=== PATIENT | female | born 1955 | race Caucasian/White ===

== ENCOUNTER → 2017-12-12 | Outpatient (CLI) | payer BC ==
--- NOTE | 2017-12-13 09:53 | MM ---
Reason for exam: screening (asymptomatic). Last mammogram was performed 1 year and 10 months ago. History: Patient is postmenopausal. Family history of breast cancer in aunt. Physical Findings: A clinical breast exam by your physician is recommended on an annual basis and results should be correlated with mammographic findings. MG Screening Mammo w CAD Bilateral CC and MLO view(s) were taken. Prior study comparison: January 30, 2016, left breast MG 3d work up w/cad LT. January 16, 2016, bilateral MG screening mammo w CAD. The breast tissue is almost entirely fat. No suspicious abnormality. No significant changes when compared with prior studies. ASSESSMENT: Negative, BI-RAD 1 RECOMMENDATION: Routine screening mammogram of both breasts in 1 year.
== END | disposition home or self-care (01) ==
LOC: RADMAMWWP 11:40
PROVIDERS: ATTEND Family Medicine
DX: Z12.31 Encounter for screening mammogram for malignant neoplasm of breast (principal)
CPT/HCPCS: 77067

== ENCOUNTER 2018-03-18 07:34 | Day surgery (SDC) | payer BC ==
[2018-03-14 11:18] VITALS: BMI 35.9
[~2018-03-18 07:34] MED LIST: LACTATED RINGERS 1,000 ML IV SCH; LIDOCAINE 1% 20 ML VIAL (10MG/ML) FOR IV START INTRADERMA PRN; MIDAZOLAM 2 MG/2 ML VIAL IV PRN
[2018-03-18 08:37] VITALS: RESP 16; TEMP 97.8
[2018-03-18] MEDS ORDERED: GLUCAGON 1 MG/ML VIAL ONE (08:55)
[2018-03-18] MEDS ORDERED: LIDOCAINE 1% INJ 10MG/ML (20 ML MDV) ONE (08:55)
[2018-03-18] MEDS ORDERED: PROPOFOL 10 MG/ML 20 ML VIAL IV ONE (08:55)
--- NOTE | 2018-03-18 09:19 | P.PCN ---
Date of Procedure: 03/18/18 Preoperative Diagnosis: Irritable bowel syndrome, strong family history of inflammatory bowel disease Postoperative Diagnosis: Diverticuli, internal hemorrhoids Procedure(s) Performed: Colonoscopy Anesthesia: MAC Surgeon: Serina Cheney Estimated Blood Loss (ml): 0 IV fluids (ml): 300 Pathology: none sent Condition: stable Disposition: PACU Indications for Procedure: Irritable bowel syndrome, family history of Crohn's disease Operative Findings: Diverticuli, internal hemorrhoids Description of Procedure: Patient was taken to the endoscopy suite and placed in the left lateral decubitus position. Sedation was given. Rectal examination patient was noted to have good sphincter tone no masses. Colonoscope was passed through the anus into the rectum. Was passed through the sigmoid colon up to splenic flexure transverse colon hepatic flexure right colon down to the area of the cecum. Circumferential observation mucosa did not reveal any lesions of concern in the cecum or right colon. No lesions of concern in the transverse colon. No lesions of concern in the left colon. In the sigmoid colon were scattered diverticuli. Scope was brought down to the rectum where it was retroflexed internal hemorrhoids identified. Impression/plan internal hemorrhoids 2. Diverticuli Plan: 1. Diverticular diet 2. Conservative management of hemorrhoids 3. Repeat scope 7-10 years unless patient develops symptoms with recommend yearly rectal exam with Hemoccult testing
--- NOTE | 2018-03-18 09:20 | P.DS ---
Providers Attending physician: Serina Cheney Primary care physician: Josef Alvarado Plan - Discharge Summary New Discharge Prescriptions: No Action Cholecalciferol [Vitamin D3] 1,000 unit PO DAILY Levothyroxine Sodium [Synthroid] 88 mcg PO DAILY Dicyclomine [Bentyl] 10 mg PO QID SUMAtriptan SUCCINATE [Imitrex] 100 mg PO DAILY PRN PRN Reason: Migraine Headache Propranolol HCl [Propranolol HCl ER] 120 mg PO DAILY Wallaceton-3 Fatty Acids [Wallaceton-3] 1,000 mg PO DAILY Meloxicam [Meloxicam] 15 mg PO DAILY Hydrochlorothiazide [Hydrochlorothiazide] 25 mg PO DAILY Esomeprazole Magnesium [Esomeprazole Magnesium] 40 mg PO DAILY Biotin 5 mg PO DAILY Amitriptyline HCl [Amitriptyline HCl] 25 mg PO HS Discharge Medication List Amitriptyline HCl [Amitriptyline HCl] 25 mg PO HS 03/14/18 [History] Biotin 5 mg PO DAILY 03/14/18 [History] Cholecalciferol [Vitamin D3] 1,000 unit PO DAILY 03/14/18 [History] Dicyclomine [Bentyl] 10 mg PO QID 03/14/18 [History] Esomeprazole Magnesium [Esomeprazole Magnesium] 40 mg PO DAILY 03/14/18 [History ] Hydrochlorothiazide [Hydrochlorothiazide] 25 mg PO DAILY 03/14/18 [History] Levothyroxine Sodium [Synthroid] 88 mcg PO DAILY 03/14/18 [History] Meloxicam [Meloxicam] 15 mg PO DAILY 03/14/18 [History] Wallaceton-3 Fatty Acids [Wallaceton-3] 1,000 mg PO DAILY 03/14/18 [History] Propranolol HCl [Propranolol HCl ER] 120 mg PO DAILY 03/14/18 [History] SUMAtriptan SUCCINATE [Imitrex] 100 mg PO DAILY PRN 03/14/18 [History] Activity/Diet/Wound Care/Special Instructions: Do not drive today Diverticular diet Discharge Disposition: HOME SELF-CARE
[2018-03-18 09:38] VITALS: BP 124/61; PULSE 71
== END 2018-03-18 10:11 | disposition home or self-care (01) ==
LOC: ORWHC2ENDO 07:34
PROVIDERS: ATTEND Surgery
DX: K57.90 Diverticulosis of intestine, part unspecified, without perforation or abscess without bleeding (principal); K64.8 Other hemorrhoids; K58.9 Irritable bowel syndrome, unspecified; K21.9 Gastro-esophageal reflux disease without esophagitis; Z83.79 Family history of other diseases of the digestive system; E03.9 Hypothyroidism, unspecified; E78.5 Hyperlipidemia, unspecified; G43.909 Migraine, unspecified, not intractable, without status migrainosus; I10 Essential (primary) hypertension; M19.90 Unspecified osteoarthritis, unspecified site; Z79.890 Hormone replacement therapy; Z79.1 Long term (current) use of non-steroidal anti-inflammatories (NSAID); Z79.899 Other long term (current) drug therapy; Z88.5 Allergy status to narcotic agent; Z91.040 Latex allergy status
CPT/HCPCS: 45378; J1610; J2001; J2704

== ENCOUNTER → 2018-06-19 | Outpatient (CLI) | payer BC ==
[2018-06-19 17:49] LABS: Basophils # (A) 0.1 k/uL (0-0.2); Basophils % (A) 1 %; Eosinophils # (A) 0.1 k/uL (0-0.7); Eosinophils % (A) 1 %; HCT 39.2 % (34.0-46.0); HGB 13.3 gm/dL (11.4-16.0); Lymphocytes # (A) 2.5 k/uL (1.0-4.8); Lymphocytes % (A) 28 %; MCH 30.5 pg (25.0-35.0); MCHC 34.1 g/dL (31.0-37.0); MCV 89.4 fL (80.0-100.0); Mean Platelet Volume 6.6; Monocytes # (A) 0.5 k/uL (0-1.0); Monocytes % (A) 6 %; Neutrophils # (A) 5.6 k/uL (1.3-7.7); Neutrophils % (A) 63 %; Platelet Count 379 k/uL (150-450); RBC 4.38 m/uL (3.80-5.40); RDW 13.2 % (11.5-15.5); WBC 8.9 k/uL (3.8-10.6)
[2018-06-19 17:58] LABS: Calcium 9.7 mg/dL (8.4-10.2); Partial Thromboplastin Time 25.2 sec (22.0-30.0); Prothrombin Time 9.6 sec (9.0-12.0)
== END | disposition home or self-care (01) ==
LOC: LABWHC1 17:05
PROVIDERS: ATTEND Family Medicine
DX: I10 Essential (primary) hypertension (principal)
CPT/HCPCS: 36415; 80048; 85025; 85610; 85730

== ENCOUNTER → 2019-08-24 | Outpatient (CLI) | payer BC ==
[2019-08-24 15:34] LABS: Basophils # (A) 0.1 k/uL (0-0.2); Basophils % (A) 1 %; Eosinophils # (A) 0.3 k/uL (0-0.7); Eosinophils % (A) 3 %; HGB 13.1 gm/dL (11.4-16.0); Lymphocytes # (A) 2.9 k/uL (1.0-4.8); Lymphocytes % (A) 28 %; MCH 30.5 pg (25.0-35.0); MCHC 33.5 g/dL (31.0-37.0); MCV 90.9 fL (80.0-100.0); Mean Platelet Volume 7.2; Monocytes # (A) 0.6 k/uL (0-1.0); Monocytes % (A) 6 %; Neutrophils # (A) 6.3 k/uL (1.3-7.7); Neutrophils % (A) 60 %; Platelet Count 344 k/uL (150-450); RBC 4.29 m/uL (3.80-5.40); RDW 12.9 % (11.5-15.5); WBC 10.5 k/uL (3.8-10.6)
[2019-08-24 15:39] LABS: INR 0.9 (<1.2); Prothrombin Time 9.5 sec (9.0-12.0)
[2019-08-25 00:46] LABS: African American GFR (CKD) 68.9 (60.0-200.0); Anion Gap 11.7 mmol/L (4.00-12.00); Calcium 9.4 mg/dL (8.7-10.3); Carbon Dioxide 23.3 mmol/L (21.6-31.8); Potassium 4.2 mmol/L (3.5-5.5)
== END | disposition home or self-care (01) ==
LOC: LABWHC1 14:40
PROVIDERS: ATTEND Family Medicine
DX: I10 Essential (primary) hypertension (principal)
CPT/HCPCS: 36415; 80048; 85025; 85610; 85730

== ENCOUNTER → 2020-04-22 | Outpatient (CLI) | payer BC ==
--- NOTE | 2020-04-22 15:54 | XR ---
EXAMINATION TYPE: XR ankle complete bilateral DATE OF EXAM: 04/22/2020 COMPARISON: None HISTORY: Bilateral ankle pain slip and fall worse on right TECHNIQUE: Bilateral ankles examined in 3 projections each. FINDINGS: Left ankle: Ankle mortise is intact. Secondary ossification center is adjacent to the medial malleolu s. Ankle mortise is intact. There is some mild soft tissue swelling over the lateral malleolus. Plant ar and Achilles tendon calcaneal heel spurs are present. No acute fracture or dislocation is evident. Right ankle: No acute fracture or dislocation is evident. The ankle mortise is intact. Plantar and Ac hilles tendon calcaneal heel spurs are present. IMPRESSION: 1. No acute fractures bilateral ankles. 2. Mild soft tissue swelling lateral malleolus left ankle. 3. Bilateral calcaneal heel spurs
== END | disposition home or self-care (01) ==
LOC: RADXRMAIN 15:15
PROVIDERS: ATTEND Family Medicine
DX: M79.89 Other specified soft tissue disorders (principal); M77.31 Calcaneal spur, right foot; M77.32 Calcaneal spur, left foot; W19.XXXA Unspecified fall, initial encounter

== ENCOUNTER → 2021-01-30 | Outpatient (CLI) | payer MEDICARE ==
[2021-01-30 19:42] LABS: Basophils # (A) 0.12 X 10*3/uL (0.00-0.10); Basophils % (A) 1.2 %; Eosinophils # (A) 0.96 X 10*3/uL (0.04-0.35); Eosinophils % (A) 9.3 %; HCT 37.7 % (37.2-46.3); HGB 12.3 g/dL (12.0-15.0); Lymphocytes # (A) 2.44 X 10*3/uL (0.90-5.00); Lymphocytes % (A) 23.5 %; MCHC 32.6 g/dL (32.0-37.0); Mean Platelet Volume 10.7 fL (9.5-12.2); Monocytes # (A) 0.74 X 10*3/uL (0.20-1.00); Monocytes % (A) 7.1 %; Neutrophils # (A) 6.07 X 10*3/uL (1.80-7.70); Neutrophils % (A) 58.5 %; Platelet Count 332 X 10*3/uL (140-440); RBC 3.97 X 10*6/uL (4.10-5.20); RDW 12.5 % (11.5-14.5); WBC 10.37 X 10*3/uL (4.50-10.00)
[2021-01-30 20:34] LABS: African American GFR (CKD) 68.5 (60.0-200.0); Albumin 4.9 g/dL (3.80-4.90); Albumin/Globulin Ratio 1.48 (1.60-3.17); Anion Gap 7.8 mmol/L (4.00-12.00); Calcium 9.8 mg/dL (8.7-10.3); Carbon Dioxide 29.2 mmol/L (21.6-31.8); Chol/HDL Ratio 3.62; Globulin 3.3 g/dL (1.6-3.3); LDL Cholesterol,Calculated 76.4 mg/dL (0.0-131.0); Non-African American GFR(CKD) 59.1 (60.0-200.0); Potassium 3.8 mmol/L (3.5-5.5); Total Bilirubin 0.9 mg/dL (0.2-1.2); Total Protein 8.2 g/dL (6.2-8.2); VLDL Calculation 41.6 mg/dL (5.00-40.00)
[2021-01-30 20:42] LABS: T4, Free (Free Thyroxine) 1.4 ng/dL (0.80-1.80)
== END | disposition home or self-care (01) ==
LOC: LABWHC1 10:24
PROVIDERS: ATTEND Family Medicine
DX: Z20.822 Contact with and (suspected) exposure to COVID-19 (principal); E03.8 Other specified hypothyroidism; I10 Essential (primary) hypertension
CPT/HCPCS: 36415; 80053; 80061; 84439; 84443; 85025; 86803

== ENCOUNTER → 2021-05-17 | Outpatient (CLI) | payer MEDICARE ==
--- NOTE | 2021-05-19 11:23 | MM ---
Reason for exam: screening (asymptomatic). Last mammogram was performed 3 years and 5 months ago. History: Patient is postmenopausal. Family history of breast cancer in maternal aunt. Taking estrogen for 4 years. Taking progesterone for 4 years. Physical Findings: A clinical breast exam by your physician is recommended on an annual basis and results should be correlated with mammographic findings. MG Screening Mammo w CAD Bilateral CC and MLO view(s) were taken. XCCL view(s) were taken of the left breast. Prior study comparison: December 12, 2017, bilateral MG screening mammo w CAD. January 30, 2016, left breast MG 3d work up w/cad LT. There are scattered fibroglandular densities. ASSESSMENT: Negative, BI-RAD 1 RECOMMENDATION: Routine screening mammogram of both breasts in 1 year.
== END | disposition home or self-care (01) ==
LOC: RADMAMWWP 08:11
PROVIDERS: ATTEND Obstetrics & Gynecology
DX: Z12.31 Encounter for screening mammogram for malignant neoplasm of breast (principal); Z78.0 Asymptomatic menopausal state; Z80.3 Family history of malignant neoplasm of breast
CPT/HCPCS: 77067

== ENCOUNTER → 2021-05-17 | Outpatient (CLI) | payer BC ==
--- NOTE | 2021-05-17 09:49 | BD ---
EXAMINATION TYPE: Axial Bone Density DATE OF EXAM: 05/17/2021 COMPARISON: Prior DEXA bone scan January 16, 2016 CLINICAL HISTORY: Postmenopausal female. Height: 5 FT 7 IN Weight: 256 FRAX RISK QUESTIONS: Alcohol (3 or more units per day): NO Family History (Parent hip fracture): NO Glucocorticoids (More than 3mos): NO (Ex: prednisone, prednisolone, methylprednisolone, dexamethasone, and hydrocortisone). History of Fracture in Adulthood: NO Secondary Osteoporosis: 1. Type 1 Diabetes: N0 2. Hyperthyroidism: REMOVED 3. Menopause before 45: NO 4. Malnutrition: NO 5. Chronic liver disease: NO Rheumatoid Arthritis: YES Current Tobacco Use: NO RISK FACTORS HISTORY OF: Surgery to Spine/Hip(right/left)/Wrist (right/left): NO Family History of Osteoporosis: NO Active: YES Diet low in dairy products/other sources of calcium: NO Postmenopausal woman: AGE 52 Take estrogen and/or progesterone medications: VAGINAL PRESENTLY Lost more than 2 inches in height since high school: YES MEDICATIONS: Thyroid Medications: YES Which medication: LEVOTHYROXINE How Long: SINCE 1975 Additional Medications: LEVOTHYROXINE, MELOXICAM, OMEPRAZOLE, PROPRANOLOL, DICYCLOMINE,MICHEAL TRY PTO L INE, SIMVASTATIN,H2O PILL, Additional History: LORET[employer]NEE REPLACEMENT EXAM MEASUREMENTS: Bone mineral densitometry was performed using the [employer] System. Bone mineral density as measured about the Lumbar spine is: ----- L1-L4(G/cm2): 1.554 T Score Values are as follows: ----- L2: 2.8 ----- L3: 3.0 ----- L4: 3.6 ----- L1-L4: 3.1 Bone mineral density has: INCREASED 6.4 % since study of: 2015 Bone mineral density about the R hip (g/cm2): 1.123 Bone mineral density about the L hip (g/cm2): 1.111 T Score values are as follows: -----R Neck: 0.6 -----L Neck: 0.5 -----R Total: 0.7 -----L Total: 1.5 Bone mineral density has: DECREASED -2.6 % since study of: 2015 Bone density likely falsely increased in the lumbar spine due to underlying scoliosis with reactive d egenerative change. IMPRESSION: Normal (Values between +1 and -1 indicate normal bone mass). Consider repeating this study in 5 year s or sooner if there is some new clinical indication. NOTE: T-SCORE=SD OF THE YOUNG ADULT MEAN.
== END | disposition home or self-care (01) ==
LOC: RADBDWWP 08:16
PROVIDERS: ATTEND Family Medicine
DX: Z13.820 Encounter for screening for osteoporosis (principal); Z78.0 Asymptomatic menopausal state
CPT/HCPCS: 77080

== ENCOUNTER 2021-06-14 08:33 | Day surgery (SDC) | payer BC, MEDICARE ==
[~2021-06-14 08:33] MED LIST changes: +LIDOCAINE 1% (10MG/ML) FOR IV START INTRADERMA PRN; -LIDOCAINE 1% 20 ML VIAL (10MG/ML) FOR IV START INTRADERMA PRN; -MIDAZOLAM 2 MG/2 ML VIAL IV PRN
[2021-06-14 09:01] VITALS: RESP 16; TEMP 97.5
[2021-06-14] MEDS ORDERED: PROPOFOL 10 MG/ML 20 ML VIAL IV ONE (09:17)
[2021-06-14] MEDS ORDERED: LIDOCAINE 1% INJ 10MG/ML (20 ML MDV) ONE (09:17)
--- NOTE | 2021-06-14 09:32 | P.PCN ---
Date of Procedure: 06/14/21 Procedure(s) Performed: BRIEF HISTORY: Patient is a 65-year-old, pleasant, male scheduled for an upper endoscopy as a part of evaluation of GERD and intermittent dysphagia to solids for the last 6 months duration. She is presently on Prilosec 20 mg daily and has these episodes about 2-3 times a week.. PROCEDURE PERFORMED: Esophagogastroduodenoscopy with dilation with biopsy. PREOPERATIVE DIAGNOSIS: Intermittent dysphagia to solids for the last 6 months duration. IV sedation per anesthesia. PROCEDURE: After informed consent was obtained, the patient was brought into the endoscopy unit. IV sedation was administered by Anesthesia under continuous monitoring. Initially the Olympus GIF-140 video endoscope was inserted into the mouth. Esophagus intubated without any difficulty. It was gradually advanced into the stomach and duodenum and carefully examined. The bulb and the second part of the duodenum appeared normal. The scope at this time was withdrawn to the stomach, adequately insufflated with air, and upon careful examination, mucosa of the antrum had diffuse gastritis and biopsies were done from this area. The body, cardia and the fundus appeared normal. The scope was then withdrawn into the esophagus. The GE junction was located at 39 cm from the incisors. was a widely patent distal esophageal Oozing noted which was dilated using 18-20 mm TTS balloon in a sequential fashion for 60 seconds. The mucosa of theesophagus appeared normal. There were no erosions or ulcerations seen and the patient tolerated the procedure well. IMPRESSION: 1. Widely patent distal esophageal Schatzki's ring status post balloon dilation using 18-20 mm TTS balloon as described above. 2. Mild antral gastritis. RECOMMENDATIONS: The findings of this examination were discussed with the patient as well as her family. She was advised to be on a clear liquid diet for lunch today. She will continue with omeprazole 20 mg twice daily and continue to follow antireflux measures. She was advised to follow up in office as needed.
[2021-06-14 09:47] VITALS: BP 112/58; PULSE 67
== END 2021-06-14 10:30 | disposition home or self-care (01) ==
LOC: ORWHC2ENDO 08:33
PROVIDERS: ATTEND Internal Medicine Gastroenterology
DX: K22.2 Esophageal obstruction (principal); K21.9 Gastro-esophageal reflux disease without esophagitis; K29.50 Unspecified chronic gastritis without bleeding; K58.9 Irritable bowel syndrome, unspecified; I10 Essential (primary) hypertension; E07.9 Disorder of thyroid, unspecified; G43.919 Migraine, unspecified, intractable, without status migrainosus; Z79.1 Long term (current) use of non-steroidal anti-inflammatories (NSAID); Z79.899 Other long term (current) drug therapy; Z91.040 Latex allergy status; Z88.5 Allergy status to narcotic agent
CPT/HCPCS: 88305; 43239; 43249; J2001; J2704; C1726

== ENCOUNTER → 2022-01-26 | Outpatient (CLI) | payer MEDICARE | END | disposition home or self-care (01) | LOC: LABWHC1 14:18 | PROVIDERS: ATTEND Family Medicine | DX: I10 Essential (primary) hypertension (principal); E03.8 Other specified hypothyroidism; E78.2 Mixed hyperlipidemia ==

== ENCOUNTER → 2022-08-01 | Outpatient (CLI) | payer MEDICARE ==
--- NOTE | 2022-08-01 12:29 | XR ---
EXAMINATION TYPE: XR Hip Complete RT DATE OF EXAM: 08/01/2022 COMPARISON: NONE HISTORY: Pain TECHNIQUE: 2 views submitted FINDINGS: There is no evidence of erosive change or acute fracture. Hypertrophic spurring of the greater trocha nter. Joint space fairly well preserved. IMPRESSION: 1. Hypertrophic spurring along the greater trochanter can be associated with trochanteric bursitis co rrelate clinically. MRI could be obtained as clinically warranted.
== END | disposition home or self-care (01) ==
LOC: RADXRMAIN 12:08
PROVIDERS: ATTEND Family Medicine
DX: M70.61 Trochanteric bursitis, right hip (principal)
CPT/HCPCS: 73502

== ENCOUNTER → 2023-09-18 | Outpatient (CLI) | payer MEDICARE ==
--- NOTE | 2023-09-18 13:06 | BD ---
EXAMINATION TYPE: Axial Bone Density DATE OF EXAM: 09/18/2023 CLINICAL HISTORY: 68 years old Female. ICD-10 CODE: N95.1 MENOPAUSAL AND FEMALE CL Height: 5 ft 6 in Weight: 262 FRAX RISK QUESTIONS: Alcohol (3 or more units per day): no Family History (Parent hip fracture): no Glucocorticoids (More than 3mos): no (Ex: prednisone, prednisolone, methylprednisolone, dexamethasone, and hydrocortisone). History of Fracture in Adulthood: no Secondary Osteoporosis: 1. Type 1 Diabetes: no 2. Hyperthyroidism: no 3. Menopause before 45: no 4. Malnutrition: no 5. Chronic liver disease: no Rheumatoid Arthritis: no Current Tobacco Use: no RISK FACTORS HISTORY OF: Surgery to Spine/Hip(right/left)/Wrist (right/left): no Family History of Osteoporosis: yes Active: yes Diet low in dairy products/other sources of calcium: no Postmenopausal woman: yes Take estrogen and/or progesterone medications: no Lost more than 2 inches in height since high school: yes Frequent falls: no Poor Health: good Hyperparathyroidism: no Adrenal Insufficiency: no MEDICATIONS: Thyroid Medications: yes Which medication: levothyroxine How Long: since 1976 Osteoporosis Medications: Which medication: How Long: Additional Medications: propanolol ,levothyroxine, statan, h2o pill, dycyclemine, Additional History: EXAM MEASUREMENTS: Bone mineral densitometry was performed using the [employer] System. Bone mineral density as measured about the Lumbar spine is: ----- L1-L4(G/cm2): 1.576 T Score Values are as follows: ----- L1: 3.9 ----- L2: 3.2 ----- L3: 2.7 ----- L4: 3.3 ----- L1-L4: 3.3 Z Score Values are as follows: ----- L1: 4.3 ----- L2: 3.7 ----- L3: 3.2 ----- L4: 3.8 ----- L1-L4: 3.8 Bone mineral density has: increased 1.4 % since study of: 2020 Bone mineral density about the R hip (g/cm2): 1.116 Bone mineral density about the L hip (g/cm2): 1.078 T Score values are as follows: -----R Neck: 0.6 -----L Neck: 0.3 -----R Total: 0.9 -----L Total: 1.5 Z Score values are as follows: -----R Neck: 1.4 -----L Neck: 1.1 -----R Total: 1.5 -----L Total: 2.0 Bone mineral density has: increased 1.4 % since study of: 2020 FRAX%s: The graph provided illustrates a 5.8 % chance for a major osteoporotic fx and a 0.2 % chance for the hips probability for fx in 10 years time. IMPRESSION: Normal (Values between +1 and -1 indicate normal bone mass). Consider repeating this study in 5 year s or sooner if there is some new clinical indication. NOTE: T-SCORE=SD OF THE YOUNG ADULT MEAN.
--- NOTE | 2023-09-19 12:13 | MM ---
Reason for Exam: Screening (asymptomatic). Last mammogram was performed 2 year(s) and 4 month(s) ago. Patient History: Menarche at age 12. First Full-Term at age 30. Late child-bearing (after 30). Postmenopausal. Currently using Estrogen, for 4 years. Currently using Progesterone, for 4 years. Maternal aunt had breast cancer. Risk Values: Jacinda 5 year model risk: 2.4%. NCI Lifetime model risk: 7.6%. Prior Study Comparison: 01/30/2016 Left Diagnostic Mammogram, [facility]. 12/12/2017 Bilateral Screening Mammogram, [facility]. 05/17/2021 Bilateral Screening Mammogram, [facility]. Tissue Density: The breast tissue is almost entirely fat. Findings: Analyzed By CAD. There is no suspicious group of microcalcifications or new suspicious mass. Overall Assessment: Negative, BI-RAD 1 Management: Screening Mammogram of both breasts in [address] [facility] will attempt to contact patient to return for supplemental views and ultrasound if indicated. Patient should continue monthly self-breast exams. A clinical breast exam by your physician is recommended on an annual basis. This exam should not preclude additional follow-up of suspicious palpable abnormalities. Note on Jacinda scores and lifetime risk: 1. A Jacinda score greater than 3% is considered moderate risk. If this is the case, consider specialist referral to assess eligibility for a risk reducing agent. 2. If overall lifetime risk for the development of breast cancer is 20% or higher, the patient may qualify for future screening with alternating mammogram and breast MRI. Electronically signed and approved by: Renaldo Deleon DO
== END | disposition home or self-care (01) ==
LOC: RADMAMWWP 08:50
PROVIDERS: ATTEND Obstetrics & Gynecology
DX: Z12.31 Encounter for screening mammogram for malignant neoplasm of breast (principal); Z78.0 Asymptomatic menopausal state; Z80.3 Family history of malignant neoplasm of breast
CPT/HCPCS: 77063; 77067; 77080

== ENCOUNTER → 2025-04-12 | Outpatient (CLI) | payer MEDICARE ==
--- NOTE | 2025-04-12 11:33 | MM ---
Reason for Exam: Screening (asymptomatic). Last mammogram was performed 1 year(s) and 7 month(s) ago. Patient History: Menarche at age 12. First Full-Term at age 30. Late child-bearing (after 30). Postmenopausal. Currently using Estrogen, for 4 years. Currently using Progesterone, for 4 years. Maternal aunt had breast cancer, age 36. Risk Values: Jacinda 5 year model risk: 2.4%. NCI Lifetime model risk: 7.3%. Prior Study Comparison: 12/12/2017 Bilateral Screening Mammogram, [facility]. 05/17/2021 Bilateral Screening Mammogram, [facility]. 09/18/2023 Bilateral MG 3D screening mammo w/cad, [facility]. Tissue Density: There are scattered areas of fibroglandular density. Findings: Subcentimeter benign-appearing left axillary lymph nodes are redemonstrated. There is no suspicious group of microcalcifications or new suspicious mass in either breast. Overall Assessment: Negative, BI-RAD 1 Management: Screening Mammogram of both breasts in 1 year. . Patient should continue monthly self-breast exams. A clinical breast exam by your physician is recommended on an annual basis. This exam should not preclude additional follow-up of suspicious palpable abnormalities. Note on Jacinda scores and lifetime risk: 1. A Jacinda score greater than 3% is considered moderate risk. If this is the case, consider specialist referral to assess eligibility for a risk reducing agent. 2. If overall lifetime risk for the development of breast cancer is 20% or higher, the patient may qualify for future screening with alternating mammogram and breast MRI. [facility], , 04/12/2025 11:30 AM. Electronically signed and approved by: Bernard Flower M.D.
== END | disposition home or self-care (01) ==
LOC: RADMAMWWP 10:22
PROVIDERS: ATTEND Family Medicine
DX: Z12.31 Encounter for screening mammogram for malignant neoplasm of breast (principal); R92.323 Mammographic fibroglandular density, bilateral breasts; Z78.0 Asymptomatic menopausal state; Z80.3 Family history of malignant neoplasm of breast
CPT/HCPCS: 77063; 77067

== ENCOUNTER → 2025-05-31 | Outpatient (CLI) | payer MEDICARE ==
--- NOTE | 2025-05-31 07:47 | XR ---
EXAMINATION TYPE: XR lumbosacral spine min 4V DATE OF EXAM: 05/31/2025 7:36 AM COMPARISON: 05/26/2012 CLINICAL INDICATION: Female, 69 years old with history of M54.42 LUMBAGO WITH SCIATICA, LEFT SIDE; PH H, pain TECHNIQUE: XR lumbosacral spine min 4V - Frontal, lateral , bilateral oblique and coned in L5-S1 late ral views of the spine. FINDINGS: No evidence of any acute osseous pathology. No evidence of loss of vertebral body height i s seen. There is levoscoliosis alignment apex L2 of the lumbar vertebral bodies. Mild scattered disc space narrowing. Multilevel marginal osteophyte formation throughout the visualized spine. There is f acet joint arthropathy throughout the spine. Evaluation the neural foramen is limited due to patient sclerosis Scattered at least mild neural foraminal stenosis. IMPRESSION: 1. No acute fracture. 2. Moderate multilevel disc degeneration with scoliosis. [facility], , 05/31/2025 7:45 AM
== END | disposition home or self-care (01) ==
LOC: RADXRMAIN 07:06
PROVIDERS: ATTEND Family Medicine
DX: M51.16 Intervertebral disc disorders with radiculopathy, lumbar region (principal); M41.86 Other forms of scoliosis, lumbar region; M47.26 Other spondylosis with radiculopathy, lumbar region
CPT/HCPCS: 72110